=== PATIENT | male | born 1975 | race Caucasian/White ===

== ENCOUNTER 2019-07-07 19:06 | Emergency (ER) | payer OTHER ==
[~2019-07-07] VITALS: Ht 193 cm; Wt 95.3 kg
--- NOTE | 2019-07-07 19:15 | NUR ---
43 YO M BIBA FROM HOME S/P SYNCOPAL EVENT. PER FAMILY, PT BECAME UNRESPONSIVE X 15-20 SECONDS WHILE SITTING AT THE DINNER TABLE. PT AWAKE, A/O X4, PALE, DIAPHORETIC, HYPOTENSIVE UPON EMS ARRIVAL. PT STATES HE SMOKED MARIJUANA 15-20 MINUTES PRIOR TO SYNCOPAL EPISODE. PT STATES THIS HAS HAPPENED BEFORE AFTER SMOKING APPROX 5 YEARS AGO. PT STATES HE RARELY SMOKES MARIJUANA; ABOUT ONCE A MONTH. PT DENIES ALCOHOL OR OTHER DRUG USE TODAY. -- PT ARRIVES TO ED A/O X 4. ANSWERING QUESTIONS APPROPRIATELY. BEHAVIOR AGE APPROPRIATE. -- SKIN PINK, WARM, DRY. BREATHING EVEN, UNLABORED. VSS. PMH-- ANXIETY RX-- WELLBUTRIN 350 MG DAILY
[2019-07-07 19:17] VITALS: BP 107/72
--- NOTE | 2019-07-07 19:29 | NUR ---
XRAY AT BEDSIDE.
--- NOTE | 2019-07-07 19:36 | NUR ---
EMT PERFORMING EKG AT BEDSIDE.
--- NOTE | 2019-07-07 19:49 | NUR ---
CHIEF OF INTERNAL MEDICINE DRAWING LABS AT BEDSIDE.
--- NOTE | 2019-07-07 20:00 | NUR ---
REPORT RECEIVED FROM KIN VAUGHN. PT IN BED, IN STABLE CONDITION AT THIS TIME.
[2019-07-07 20:21] LABS: BASOPHILS % (AUTO) 0.7 % (0.0-2.0); EOSINOPHILS # (AUTO) 0.2 K/uL (0-0.4); EOSINOPHILS % (AUTO) 2.7 % (0.0-4.0); HEMATOCRIT 47.5 % (36-52); HEMOGLOBIN 15.9 g/dL (12.0-18.0); LYMPHOCYTES # (AUTO) 1.7 K/uL (2.0-11.5); LYMPHOCYTES % (AUTO) 23.3 % (20.5-51.1); MEAN CORPUSCULAR HEMOGLOBIN 29 pg (27-31); MEAN CORPUSCULAR HGB CONC 34 g/dL (33-37); MEAN CORPUSCULAR VOLUME 86.1 fL (80-94); MONOCYTES # (AUTO) 0.6 K/uL (0.8-1.0); MONOCYTES % (AUTO) 7.8 % (1.7-9.3); NEUTROPHILS # (AUTO) 4.7 K/uL (1.8-7.7); NEUTROPHILS % (AUTO) 65.5 % (42.2-75.2); PLATELET COUNT (AUTO) 206 K/uL (140-450); RED BLOOD CELL COUNT(AUTO) 5.51 MIL/uL (4.20-6.10); RED CELL DISTRIBUTION WIDTH 13.4 % (11.6-13.7); WHITE BLOOD COUNT (AUTO) 7.2 K/uL (4.8-10.8)
[2019-07-07 20:38] LABS: ANION GAP 13.6 (8-16); CREATININE 1.3 mg/dL (0.7-1.3); POTASSIUM 3.6 mmol/L (3.5-5.1)
[2019-07-07 20:44] LABS: ALBUMIN 3.8 g/dL (3.4-5.0); TOTAL BILIRUBIN 0.4 mg/dL (0.0-1.0)
--- NOTE | 2019-07-07 21:00 | NUR ---
ED MD DR. HARMON AT PT BEDSIDE
[2019-07-07 21:17] VITALS: BP 115/69
--- NOTE | 2019-07-07 21:17 | NUR ---
Patient discharged with v/s stable. Written and verbal after care instructions given and explained. Patient verbalized understanding. Ambulatory with steady gait. All questions addressed prior to discharge. Advised to follow up with PMD.
== END 2019-07-07 21:17 | disposition home or self-care (01) ==
LOC: MED 19:06
DX: R55 Syncope and collapse (principal); F12.10 Cannabis abuse, uncomplicated; F41.9 Anxiety disorder, unspecified
CPT/HCPCS: 36415; 71045; 80053; 84484; 85025; 93005; 99284